=== PATIENT | female | born 1970 | race Caucasian/White ===

== ENCOUNTER → 2017-02-21 | Outpatient (CLI) | payer MEDICAID ==
[~2017-02-21] MED LIST: FERRIC CARBOXYMALTOSE 750 MG in NORMAL SALINE 250 ML IV PRN; NORMAL SALINE 250 ML IV PRN
[2017-02-21 10:34] VITALS: BP 124/60
== END ==
LOC: II 09:31
PROVIDERS: ATTEND Specialist
PROC: 3E033GC Introduction of Other Therapeutic Substance into Peripheral Vein, Percutaneous Approach (ICD-10-PCS; principal; 2017-02-21)
DX: D50.9 Iron deficiency anemia, unspecified (principal); K91.2 Postsurgical malabsorption, not elsewhere classified
CPT/HCPCS: 96365; J7050; J1439

== ENCOUNTER → 2017-02-21 | Outpatient (CLI) | payer MEDICAID | LOC: RAD 12:38 | PROVIDERS: ATTEND Specialist | DX: D73.89 Other diseases of spleen (principal); N83.202 Unspecified ovarian cyst, left side | CPT/HCPCS: 74174 ==

== ENCOUNTER 2017-03-01 09:36 | Outpatient (CLI) | payer MEDICAID ==
[2017-03-01 11:00] VITALS: BP 142/60
== END 2017-03-01 11:00 | disposition home or self-care (01) ==
LOC: II 09:36
PROVIDERS: ATTEND Specialist
PROC: 3E033GC Introduction of Other Therapeutic Substance into Peripheral Vein, Percutaneous Approach (ICD-10-PCS; principal; 2017-03-01)
DX: D50.9 Iron deficiency anemia, unspecified (principal); K91.2 Postsurgical malabsorption, not elsewhere classified
CPT/HCPCS: 96365; J7050; J1439

== ENCOUNTER 2017-06-13 17:29 | Emergency (ER) | payer MEDICAID, OTHER ==
--- NOTE | 2017-06-13 18:22 | ER Document Report ---
ED Medical Screen (RME) - General Chief Complaint: Headache Stated Complaint: HEAD PAIN Time Seen by Provider: 06/13/17 18:16 Mode of Arrival: Ambulatory Information source: Patient Notes: 47 yr old female hx of antiphospholipid presents whit complaints of headaches intermittently over the past month, worst over the past 2 hours Patient denies any neurological deficit, patient is on Eliquis I have greeted and performed a rapid initial assessment of this patient. A comprehensive ED assessment and evaluation of the patient, analysis of test results and completion of the medical decision making process will be conducted by additional ED providers. PHYSICAL EXAMINATION: GENERAL: Well-appearing, well-nourished and in no acute distress. Patient is wearing sunglasses HEAD: Atraumatic, normocephalic. EYES: Pupils equal round extraocular movements intact, conjunctiva are normal. ENT: Nares patent NECK: Normal range of motion LUNGS: No respiratory distress Musculoskeletal: Normal range of motion NEUROLOGICAL: Normal speech, normal gait. PSYCH: Normal mood, normal affect. SKIN: Warm, Dry, normal turgor, no rashes or lesions noted. TRAVEL OUTSIDE OF THE [place] IN LAST 30 DAYS: No - Related Data Allergies/Adverse Reactions: latex [Latex] Allergy (Verified 06/13/17 17:50) warfarin sodium [From Coumadin] Allergy (Verified 06/13/17 17:50) acetaminophen [From Tylenol] Adverse Reaction (Unknown, Verified 06/13/17 17:50) lisinopril Adverse Reaction (Verified 06/13/17 17:50) itching throat morphine Adverse Reaction (Verified 06/13/17 17:50) stomach cramps Home Medications: Current Home Medications Amlodipine Besylate 5 mg PO DAILY 06/13/17 [History] Apixaban [Eliquis 5 mg Tablet] 5 mg PO BID 06/13/17 [History] Cyclobenzaprine HCl [Flexeril 10 mg Tablet] 10 mg PO TIDP PRN 06/13/17 [History] Past Medical History - Social History Frequency of alcohol use: Social Drug Abuse: Marijuana Family history: Other - Past Medical History Cardiac Medical History: Reports: Hx Hypercholesterolemia, Hx Hypertension Denies: Hx Congestive Heart Failure, Hx Coronary Artery Disease, Hx Heart Attack, Hx Pulmonary Embolism Pulmonary Medical History: Denies: Hx Asthma, Hx Bronchitis, Hx COPD, Hx Pneumonia, Hx Tuberculosis Neurological Medical History: Denies: Hx Cerebrovascular Accident, Hx Seizures Endocrine Medical History: Denies: Hx Diabetes Mellitus Type 1, Hx Diabetes Mellitus Type 2, Hx Hyperthyroidism, Hx Hypothyroidism Renal/ Medical History: Denies: Hx Peritoneal Dialysis GI Medical History: Reports: Hx Gastroesophageal Reflux Disease, Hx Hiatal Hernia, Hx Ulcer. Denies: Hx Cirrhosis, Hx Hepatitis Musculoskeltal Medical History: Reports Hx Arthritis - bursitis, osteo in spine and rheumatoid Psychiatric Medical History: Denies: Hx Depression Infectious Medical History: Denies: Hx Hepatitis, Hx MRSA Past Surgical History: Reports: Hx Abdominal Surgery - Vertical Banding, Hx Section, Hx Cholecystectomy, Hx Gastric Bypass Surgery, Hx Tonsillectomy, Hx Tubal Ligation. Denies: Hx Hysterectomy - Immunizations Hx Diphtheria, Pertussis, Tetanus Vaccination: Yes Physical Exam - Vital signs Vitals: Temp Pulse BP Pulse Ox 98.5 F 88 133/88 H 93 06/13/17 17:48 06/13/17 17:48 06/13/17 17:48 06/13/17 17:48 Course - Vital Signs Vital signs: Temp Pulse Resp BP Pulse Ox 98.5 F 88 18 133/88 H 93 06/13/17 17:48 06/13/17 17:48 06/13/17 18:10 06/13/17 17:48 06/13/17 17:48
[2017-06-13 19:10] LABS: ABSOLUTE BASOPHILS # (AUTO) 0.1 10^3/uL (0.0-0.2); ABSOLUTE EOSINOPHILS # (AUTO) 0.5 10^3/uL (0.0-0.6); ABSOLUTE LYMPHOCYTES (AUTO) 3.2 10^3/uL (0.5-4.7); ABSOLUTE MONOCYTES (AUTO) 0.7 10^3/uL (0.1-1.4); ABSOLUTE NEUT (AUTO) 5.9 10^3/uL (1.7-8.2); EOSINOPHILS % (AUTO) 5.1 % (0-6); HEMATOCRIT 43.8 % (36.0-47.0); HEMOGLOBIN 15.5 g/dL (12.0-15.5); HGB HCT DIFFERENCE 2.7; LYMPHOCYTES % (AUTO) 30.6 % (13-45); MEAN CORPUSCULAR HEMOGLOBIN 33.9 pg (27.0-33.4); MEAN CORPUSCULAR HGB CONC 35.4 g/dL (32.0-36.0); MEAN CORPUSCULAR VOLUME 96 fl (80-97); MONOCYTES % (AUTO) 6.3 % (3-13); RED BLOOD COUNT 4.59 10^6/uL (3.72-5.28); RED CELL DISTRIBUTION WIDTH 13.3 % (11.5-14.0); WHITE BLOOD COUNT 10.4 10^3/uL (4.0-10.5)
[2017-06-13 19:25] LABS: ALANINE AMINOTRANSFERASE 28 U/L (9-52); ALBUMIN 4.4 g/dL (3.5-5.0); ALKALINE PHOSPHATASE 80 U/L (38-126); ANION GAP 11 (5-19); ASPARTATE AMINO TRANSFERASE 21 U/L (14-36); BILIRUBIN,DIRECT 0.4 mg/dL (0.0-0.4); BILIRUBIN,TOTAL 0.5 mg/dL (0.2-1.3); BLOOD UREA NITROGEN 8 mg/dL (7-20); CALCIUM 9.8 mg/dL (8.4-10.2); CARBON DIOXIDE 26 mmol/L (22-30); CHLORIDE 102 mmol/L (98-107); CREATININE RESULT 0.69 mg/dL (0.52-1.25); GLUCOSE 96 mg/dL (75-110); POTASSIUM 4.2 mmol/L (3.6-5.0); SODIUM 139.2 mmol/L (137-145); TOTAL PROTEIN 8.1 g/dL (6.3-8.2)
--- NOTE | 2017-06-13 19:43 | ER Document Report ---
ED Headache - General Chief Complaint: Headache Stated Complaint: HEAD PAIN Time Seen by Provider: 06/13/17 18:16 Mode of Arrival: Ambulatory Notes: Patient is a 47-year-old female who presents emergency department complaining of headache. Patient states that she has been having headaches on the top of her head described as " starburst" fleeting headache. Patient states that earlier this afternoon about 30 she had a headache that has not gone away and is now behind her right eye with associated blurry vision, light sensitivity. Patient states she does have a history of migraines. Patient states that she took her home dose of oxycodone with minimal improvement in her symptoms. 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 Denies any history of CVA or TIA. TRAVEL OUTSIDE OF THE [place] IN LAST 30 DAYS: No - Related Data Allergies/Adverse Reactions: latex [Latex] Allergy (Verified 06/13/17 17:50) warfarin sodium [From Coumadin] Allergy (Verified 06/13/17 17:50) acetaminophen [From Tylenol] Adverse Reaction (Unknown, Verified 06/13/17 17:50) lisinopril Adverse Reaction (Verified 06/13/17 17:50) itching throat morphine Adverse Reaction (Verified 06/13/17 17:50) stomach cramps Home Medications: Current Home Medications Amlodipine Besylate 5 mg PO DAILY 06/13/17 [History] Apixaban [Eliquis 5 mg Tablet] 5 mg PO BID 06/13/17 [History] Cyclobenzaprine HCl [Flexeril 10 mg Tablet] 10 mg PO TIDP PRN 06/13/17 [History] Past Medical History - General Information source: Patient - Social History Smoking Status: Current Every Day Smoker Frequency of alcohol use: Social Drug Abuse: Marijuana Family History: Reviewed & Not Pertinent, Other Patient has suicidal ideation: No Patient has homicidal ideation: No - Past Medical History Cardiac Medical History: Reports: Hx Hypercholesterolemia, Hx Hypertension Denies: Hx Congestive Heart Failure, Hx Coronary Artery Disease, Hx Heart Attack, Hx Pulmonary Embolism Pulmonary Medical History: Denies: Hx Asthma, Hx Bronchitis, Hx COPD, Hx Pneumonia, Hx Tuberculosis Neurological Medical History: Denies: Hx Cerebrovascular Accident, Hx Seizures Endocrine Medical History: Denies: Hx Diabetes Mellitus Type 1, Hx Diabetes Mellitus Type 2, Hx Hyperthyroidism, Hx Hypothyroidism Renal/ Medical History: Denies: Hx Peritoneal Dialysis GI Medical History: Reports: Hx Gastroesophageal Reflux Disease, Hx Hiatal Hernia, Hx Ulcer. Denies: Hx Cirrhosis, Hx Hepatitis Musculoskeltal Medical History: Reports Hx Arthritis - bursitis, osteo in spine and rheumatoid Psychiatric Medical History: Denies: Hx Depression Infectious Medical History: Denies: Hx Hepatitis, Hx MRSA Past Surgical History: Reports: Hx Abdominal Surgery - Vertical Banding, Hx Section, Hx Cholecystectomy, Hx Gastric Bypass Surgery, Hx Tonsillectomy, Hx Tubal Ligation. Denies: Hx Hysterectomy - Immunizations Hx Diphtheria, Pertussis, Tetanus Vaccination: Yes Review of Systems - Review of Systems Constitutional: No symptoms reported EENT: See HPI Cardiovascular: No symptoms reported Respiratory: No symptoms reported Neurological/Psychological: See HPI -: Yes All other systems reviewed and negative Physical Exam - Vital signs Vitals: Temp Pulse BP Pulse Ox 98.5 F 88 133/88 H 93 06/13/17 17:48 06/13/17 17:48 06/13/17 17:48 06/13/17 17:48 - Notes Notes: PHYSICAL EXAM GENERAL: Alert, interacts well. Is resting comfortably on the gurney. Continues to hold her right hand over her right eye due to sensitivity to light. HEAD: Normocephalic, atraumatic. EYES: Pupils equal, round, and reactive to light. Extraocular movements intact. ENT: Oral mucosa moist, tongue midline. NECK: Full range of motion. Supple. Trachea midline. LUNGS: Clear to auscultation bilaterally, no wheezes, rales, or rhonchi. No respiratory distress. HEART: Regular rate and rhythm. No murmurs, gallops, or rubs. ABDOMEN: Soft, nondistended, nontender. No guarding, rebound, or rigidity.. Bowel sounds present in all 4 quadrants. EXTREMITIES: Moves all 4 extremities spontaneously. No edema, radial and dorsalis pedis pulses 2/4 bilaterally. No cyanosis. Gait stable and able to ambulate without assistance. NEUROLOGICAL: Alert and oriented x4. Normal speech. GCS 15 PSYCH: Normal affect, normal mood. SKIN: Warm, dry, normal turgor. No rashes or lesions noted. Course - Re-evaluation Re-evalutation: 06/13/17 21:50 Patient with benign workup and CTA that does not show any evidence of infarction , obstruction. Patient has responded well to IV Toradol. Patient does not have any focal neurologic deficits, nuchal rigidity, vital signs are within normal limits no papilledema. Patient is otherwise no acute distress and hemodynamically stable. Low index for suspicion of acute subarachnoid hemorrhage, meningitis or mass. Low suspicion for acute life-threatening etiology with intact neuro exam therefore no additional imaging or laboratory testing is indicated. Will discharge patient home with strict follow-up with PCP for blood pressure check within the next week. - Vital Signs Vital signs: Temp Pulse Resp BP Pulse Ox 98.5 F 77 18 148/93 H 98 06/13/17 17:48 06/13/17 22:01 06/13/17 22:01 06/13/17 22:01 06/13/17 22:01 - Laboratory Result Diagrams: 06/13/17 18:55 06/13/17 18:55 Laboratory results interpreted by me: 06/13/17 18:55 MCH 33.9 H - Diagnostic Test Radiology reviewed: Image reviewed, Reports reviewed Discharge - Discharge Clinical Impression: Headache Qualifiers: Headache chronicity pattern: acute headache Condition: Good Disposition: HOME, SELF-CARE Additional Instructions: HEADACHE: The physician does not feel that the headache you are experiencing has a serious underlying cause. Most headaches are due to emotional stress, with resultant muscle tension (tension headache). Occasionally, headaches are secondary to changes in the blood vessels of the scalp (vascular headache and migraine headache). Sometimes, a headache is the first symptom of another developing illness, such as a viral infection. You have no evidence of stroke, bleeding, meningitis, or other serious cause of your headache. The treatment of headaches varies with the severity and cause of the pain. Not all headaches need pain shots. In fact, there is evidence that using narcotics for headaches may make them worse in the long run. The physician will determine the therapy that's in your best interest. If you develop a fever, if the headache is different from any you've previously experienced, or if the headache progressively worsens, then call your physician at once or go to the emergency room. REGLAN (METOCLOPRAMIDE): Reglan has been prescribed. This medicine affects the stomach and intestines. It can be used to treat nausea and vomiting, to prevent reflux of stomach acid up into the esophagus, or to increase the contractions of the stomach and intestines. It is often prescribed for esophagitis, and for paralysis of the stomach in diabetics. Reglan can cause either mild restlessness or drowsiness. You should contact the doctor at once if you become extremely restless, anxious, or cannot sleep, or if you develop uncontrollable motions of the lips, tongue, or jaw. Do not take alcohol with this medicine. Do not drive or operate machinery until you have been taking this medicine long enough to know how it affects you. Call the doctor if you develop abdominal pains, lightheadedness, black stool, or blood in the stool or vomitus. TORADOL INJECTION: You have been given an injection of ketorolac tromethamine (Toradol). This is an excellent, safe drug for pain control. It also has potent antiinflammatory action. You should have significant pain relief within about one hour. Toradol is not addicting and is non-sedating. It does not interfere with driving or work. Call or return if you develop itching, hives, shortness of breath, or rash. FOLLOW-UP CARE: If you have been referred to a physician for follow-up care, call the physician s office for an appointment as you were instructed or within the next two days. If you experience worsening or a significant change in your symptoms, notify the physician immediately or return to the Emergency Department at any time for re-evaluation. [facility] - Follow up as needed
--- NOTE | 2017-06-13 20:19 | RADIOLOGY REPORT (SQ) ---
EXAM DESCRIPTION: CTA HEAD COMPLETED DATE/TIME: 06/13/2017 8:08 pm REASON FOR STUDY: headahce, hx of aortic clots COMPARISON: February 2016 TECHNIQUE: Post IV contrast scanning, thin section axial imaging through the brain to evaluate the a rterial structures. Source and MIP images are saved and reviewed on PACS. Advanced 3D imaging as volume-rendering, MIPs, SSD performed? No All CT scanners at this facility use dose modulation, iterative reconstruction, and/or weight based d osing when appropriate to reduce radiation dose to as low as reasonably achievable (ALARA). [facility]: Dose Right [facility]: CareDose [facility]: Dose Right [facility]: Teradose 4D [facility]: Anam Mobile CONTRAST TYPE AND DOSE: contrast/concentration: Isovue 370.00 mg/ml; Total Contrast Delivered: 70.0 ml; Total Saline Delivered: 75.0 ml RENAL FUNCTION: Creatinine 0.69 LIMITATIONS: None. FINDINGS: [place]: The anterior, middle, posterior cerebral arteries are all patent. No ev idence of aneurysm or focal stenosis. POSTERIOR CIRCULATION: The distal vertebral arteries are patent as is the basilar artery. No aneurysm . BRAIN: No gross enhancing lesions as visualized. The superior cerebral hemispheres are not included in the field of view. BONES: Intact as visualized. SINUSES: No fluid or mucosal thickening. OTHER: No other significant finding. IMPRESSION: NO CTA EVIDENCE OF STENOSIS OR ANEURYSM OF THE [place]. TECHNICAL DOCUMENTATION: JOB ID: [id number] Quality ID # [id number]: Final reports with documentation of one or more dose reduction techniques (e.g., Au tomated exposure control, adjustment of the mA and/or kV according to patient size, use of iterative reconstruction technique) 2010 [employer]- All Rights Reserved
[2017-06-13] MEDS ORDERED: KETOROLAC TROMETHAMINE INJ/PF 30 MG/1 ML SDV IV ONE (20:53)
[2017-06-13] MEDS ORDERED: METOCLOPRAMIDE HCL INJ/PF 10 MG/2 ML SDV IV ONE (20:53)
[2017-06-13 22:06] VITALS: BP 148/93
== END 2017-06-13 22:01 | disposition home or self-care (01) ==
LOC: ER 17:29
DX: R51 Headache (principal); F17.200 Nicotine dependence, unspecified, uncomplicated; E78.00 Pure hypercholesterolemia, unspecified; I10 Essential (primary) hypertension; Z90.49 Acquired absence of other specified parts of digestive tract; Z91.040 Latex allergy status; Z88.6 Allergy status to analgesic agent; Z98.84 Bariatric surgery status
CPT/HCPCS: 99284; 96374; 96375; 36415; 85025; 80053; 70496; J1885; J2765

== ENCOUNTER → 2017-12-20 | Outpatient (CLI) | payer MEDICAID ==
--- NOTE | 2017-12-23 18:10 | XCELERA REPORT ---
[address] [address] Lower Extremity Arterial Evaluation Name: VELMA PALACIOS Age: 47 yrs Gender: Female : 1970 Patient Status: Outpatient Patient Location: Study Date: 12/20/2017 09:06 AM Procedure: A color flow and duplex scan of the lower extremity arteries was performed bilaterally with velocity and waveform anaylsis. Ankle brachial indicies performed. Reason For Study: PVD Ordering Physician: NISHANT COULTER Performed By: Keisha Husain Measurements and Calculations Right Left MAINFRAME APPLICATIONS DEVELOPER PSV 89.9 51.9 cm/sec Prox PFA PSV -89.3 -38.2 cm/sec Prox SFA PSV 84.9 77.7 cm/sec Mid SFA PSV -86.0 -60.4 cm/sec Dist SFA PSV -36.0 -57.6 cm/sec Prox Pop A PSV 51.3 35.2 cm/sec Dist ANDREA PSV 127.0 67.9 cm/sec Prox BANQUET LEAD PSV 50.8 cm/sec Dist BANQUET LEAD PSV 70.5 18.9 cm/sec Prox Dorys A PSV 63.5 cm/sec Dist Dorys A PSV 53.1 cm/sec Mikael Pedis PSV -106.9 44.0 cm/sec Right Side Arterial Evaluation Normal velocity and triphasic waveforms noted from the Common Femoral artery to the Posterior Tibial artery. Biphasic in the Anterior Tibial artery. 20-49 % stenosis at the Anterior Tibial artery. Ankle Brachial index 1.3. Left Side Arterial Evaluation Normal velocity and triphasic waveforms noted from the Common Femoral artery to the Anterior Tibial artery. Biphasic in the Posterior Tibial artery. 20-49 % stenosis at the Posterior Tibial artery. Ankle Brachial index 1.4. Interpretation Summary Mild hemodynamically significant lesions in the bilateral lower extremities, on duplex imaging, at rest. : NISHANT COULTER > Nishant Coulter
== END ==
LOC: SP 08:53
PROVIDERS: ATTEND Surgery
DX: I73.9 Peripheral vascular disease, unspecified (principal)
CPT/HCPCS: 93925

== ENCOUNTER 2018-06-04 14:41 | Emergency (ER) | payer MEDICAID ==
[2018-06-04 15:13] VITALS: BP 151/91
--- NOTE | 2018-06-04 15:44 | ER Document Report ---
ED Medical Screen (RME) - General Chief Complaint: Breast Problem Stated Complaint: POSSIBLE ABSCESS Time Seen by Provider: 06/04/18 15:41 Notes: 48 years old female with a history of right breast abscess presents today with another swelling and tenderness over the right breast. No fever chills or other constitutional symptoms TRAVEL OUTSIDE OF THE [place] IN LAST 30 DAYS: No - Related Data Allergies/Adverse Reactions: latex [Latex] Allergy (Verified 06/04/18 14:43) warfarin sodium [From Coumadin] Allergy (Verified 06/04/18 14:43) acetaminophen [From Tylenol] Adverse Reaction (Unknown, Verified 06/04/18 14:43) lisinopril Adverse Reaction (Verified 06/04/18 14:43) itching throat morphine Adverse Reaction (Verified 06/04/18 14:43) stomach cramps Past Medical History - Social History Chew tobacco use (# tins/day): No Frequency of alcohol use: Social Drug Abuse: None Family history: Other - Past Medical History Cardiac Medical History: Reports: Hx Hypercholesterolemia, Hx Hypertension Denies: Hx Congestive Heart Failure, Hx Coronary Artery Disease, Hx Heart Attack, Hx Pulmonary Embolism Pulmonary Medical History: Denies: Hx Asthma, Hx Bronchitis, Hx COPD, Hx Pneumonia, Hx Tuberculosis Neurological Medical History: Denies: Hx Cerebrovascular Accident, Hx Seizures Endocrine Medical History: Denies: Hx Diabetes Mellitus Type 1, Hx Diabetes Mellitus Type 2, Hx Hyperthyroidism, Hx Hypothyroidism Renal/ Medical History: Denies: Hx Peritoneal Dialysis GI Medical History: Reports: Hx Gastroesophageal Reflux Disease, Hx Hiatal Hernia, Hx Ulcer. Denies: Hx Cirrhosis, Hx Hepatitis Musculoskeltal Medical History: Reports Hx Arthritis - bursitis, osteo in spine and rheumatoid Psychiatric Medical History: Denies: Hx Depression Infectious Medical History: Denies: Hx Hepatitis, Hx MRSA Past Surgical History: Reports: Hx Abdominal Surgery - Vertical Banding, Hx Section, Hx Cholecystectomy, Hx Gastric Bypass Surgery, Hx Orthopedic Surgery - ablation of lower lumbar spine, Hx Tonsillectomy, Hx Tubal Ligation. Denies: Hx Hysterectomy - Immunizations Hx Diphtheria, Pertussis, Tetanus Vaccination: Yes Physical Exam - Vital signs Vitals: Temp Pulse Resp BP Pulse Ox 98.6 F 91 18 151/91 H 98 06/04/18 15:11 06/04/18 15:11 06/04/18 15:11 06/04/18 15:11 06/04/18 15:11 Course - Vital Signs Vital signs: Temp Pulse Resp BP Pulse Ox 98.6 F 91 18 151/91 H 98 06/04/18 15:11 06/04/18 15:11 06/04/18 15:11 06/04/18 15:11 06/04/18 15:11 Doctor's Discharge - Discharge Referrals: NISHANT COULTER MD [Primary Care Provider] - Follow up as needed
[2018-06-04 16:45] LABS: ABSOLUTE BASOPHILS # (AUTO) 0.1 10^3/uL (0.0-0.2); ABSOLUTE EOSINOPHILS # (AUTO) 0.7 10^3/uL (0.0-0.6); ABSOLUTE LYMPHOCYTES (AUTO) 3.6 10^3/uL (0.5-4.7); ABSOLUTE MONOCYTES (AUTO) 0.7 10^3/uL (0.1-1.4); ABSOLUTE NEUT (AUTO) 5.3 10^3/uL (1.7-8.2); EOSINOPHILS % (AUTO) 6.4 % (0-6); HEMATOCRIT 39.9 % (36.0-47.0); HEMOGLOBIN 13.9 g/dL (12.0-15.5); LYMPHOCYTES % (AUTO) 34.7 % (13-45); MEAN CORPUSCULAR HEMOGLOBIN 33.3 pg (27.0-33.4); MEAN CORPUSCULAR VOLUME 95 fl (80-97); MONOCYTES % (AUTO) 6.9 % (3-13); PLATELET COUNT 359 10^3/uL (150-450); RED BLOOD COUNT 4.19 10^6/uL (3.72-5.28); RED CELL DISTRIBUTION WIDTH 13.2 % (11.5-14.0); TOTAL CELLS COUNTED % (AUTO) 100 %; WHITE BLOOD COUNT 10.4 10^3/uL (4.0-10.5)
--- NOTE | 2018-06-04 21:42 | RADIOLOGY REPORT (SQ) ---
EXAM DESCRIPTION: U/S BREAST UNILATERAL LIMITED COMPLETED DATE/TIME: 06/04/2018 5:40 pm REASON FOR STUDY: Right breast abscess COMPARISON: None TECHNIQUE: Static and Realtime grayscale interrogation of focal area(s) of concern in the right pola st(s) acquired. Selected color doppler/spectral images saved to PACS. LIMITATIONS: None. FINDINGS: Masses:There is an irregular hypoechoic area measuring 2.3 x 1.9 x 1.2 cm in the retroareo lar right breast. Architecture:No alteration of normal morphology. No skin thickening. No edema. Other: None. IMPRESSION: Irregular hypoechoic area in the retroareolar right breast. Possible recurrent breast abscess. Recommend mammogram. BIRAD: 1 Negative. RECOMMENDATION: RECOMMENDED FOLLOW-UP: Follow-up as clinically indicated. COMMENT: The [employer] ([employer]) has developed recommendations for screening MRI of the breasts in certain patient populations, to be used in conjunction with mammography. Breast MRI s urveillance may be appropriate for women with more than 20% lifetime risk of developing breast cancer as determined by genetic testing, significant family history of the disease, or history of mantle r adiation for Hodgkins Disease. ACR Practice Guidelines 2008. TECHNICAL DOCUMENTATION: FINDING NUMBER: (1) ASSESSMENT: (1) JOB ID: [id number] [employer]- All Rights Reserved Reading location - IP/workstation name: [email or web address]
[2018-06-04] MEDS ORDERED: SULFAMETHOXAZOLE/TRIMETHOPRIM 800-160 MG TABLET PO ONE (22:20)
[2018-06-04] MEDS ORDERED: CEPHALEXIN 500 MG CAPSULE PO ONE (22:21)
--- NOTE | 2018-06-04 22:27 | ER Document Report ---
ED Breast Problem - General Chief Complaint: Breast Problem Stated Complaint: POSSIBLE ABSCESS Time Seen by Provider: 06/04/18 15:41 Mode of Arrival: Ambulatory Information source: Patient TRAVEL OUTSIDE OF THE [place] IN LAST 30 DAYS: No - HPI Patient complains to provider of: Other - 40-year-old woman who presents for evaluation of pain and swelling in her right breast which is reminiscent of previous abscesses which she has had. She notes that she has had an abscess in the past which required operative drainage because it had extended down to the level of the chest wall, states that this was not quite that bad have been spontaneously draining up until yesterday which time it blocked off swelled and caused increased pain in the breast. She denies any fevers or chills, denies any active drainage at this time, she does endorse pain to the right breast and swelling in the size of approximately 1 rigoberto of an abscess. Nothing is made it any better, touching it makes it worse. - Related Data Allergies/Adverse Reactions: latex [Latex] Allergy (Verified 06/04/18 14:43) warfarin sodium [From Coumadin] Allergy (Verified 06/04/18 14:43) acetaminophen [From Tylenol] Adverse Reaction (Unknown, Verified 06/04/18 14:43) lisinopril Adverse Reaction (Verified 06/04/18 14:43) itching throat morphine Adverse Reaction (Verified 06/04/18 14:43) stomach cramps Past Medical History - General Information source: Patient - Social History Smoking Status: Current Every Day Smoker Chew tobacco use (# tins/day): No Frequency of alcohol use: Social Drug Abuse: None Family History: Reviewed & Not Pertinent, Other Patient has suicidal ideation: No Patient has homicidal ideation: No - Past Medical History Cardiac Medical History: Reports: Hx Hypercholesterolemia, Hx Hypertension Denies: Hx Congestive Heart Failure, Hx Coronary Artery Disease, Hx Heart Attack, Hx Pulmonary Embolism Pulmonary Medical History: Denies: Hx Asthma, Hx Bronchitis, Hx COPD, Hx Pneumonia, Hx Tuberculosis Neurological Medical History: Denies: Hx Cerebrovascular Accident, Hx Seizures Endocrine Medical History: Denies: Hx Diabetes Mellitus Type 1, Hx Diabetes Mellitus Type 2, Hx Hyperthyroidism, Hx Hypothyroidism Renal/ Medical History: Denies: Hx Peritoneal Dialysis GI Medical History: Reports: Hx Gastroesophageal Reflux Disease, Hx Hiatal Hernia, Hx Ulcer. 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 Denies: Hx Hysterectomy - Immunizations Hx Diphtheria, Pertussis, Tetanus Vaccination: Yes Review of Systems - Review of Systems -: Yes All other systems reviewed and negative Physical Exam - Vital signs Vitals: Temp Pulse Resp BP Pulse Ox 98.6 F 91 18 151/91 H 98 06/04/18 15:11 06/04/18 15:11 06/04/18 15:11 06/04/18 15:11 06/04/18 15:11 - General General appearance: Appears well In distress: None - HEENT Head: Normocephalic Eyes: Normal Conjunctiva: Normal - Respiratory Respiratory status: No respiratory distress Breath sounds: Normal Chest palpation: Other Notes: 5 x 5 cm terse swollen area deep to the areola on the right breast - Cardiovascular Rhythm: Regular Heart sounds: Normal auscultation - Abdominal Inspection: Normal Distension: No distension - Back Back: Normal - Extremities General upper extremity: Normal inspection General lower extremity: Normal inspection - Neurological Neuro grossly intact: Yes Course - Re-evaluation Re-evalutation: 06/04/18 23:01 40-year-old female presents for swelling in the right breast. Had an ultrasound prior to evaluation. Also had laboratory evaluation. 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 Her ultrasound does demonstrate what appears to be a fluid collection consistent with a probable abscess it was recommended to potentially pursue a mammogram though clinically at this time she has an abscess. Spoke to Dr. larson the on-call general surgeon, he is in agreement at this time to evaluate the patient in his clinic for possible needle aspiration or drainage. Because she has had abscesses in the past will plan for antibiotic coverage. Was given return precautions and encouraged to follow-up with Dr. larson tomorrow in his clinic in the morning. Both were in agreement with this plan. - Vital Signs Vital signs: Temp Pulse Resp BP Pulse Ox 98.6 F 91 18 151/91 H 98 06/04/18 15:11 06/04/18 15:11 06/04/18 15:11 06/04/18 15:11 06/04/18 15:11 - Laboratory Result Diagrams: 06/04/18 16:07 Laboratory results interpreted by me: 06/04/18 16:07 Eosinophils % 6.4 H Absolute Eosinophils 0.7 H Discharge - Discharge Clinical Impression: Abscess of right breast Condition: Good Disposition: HOME, SELF-CARE Instructions: Abscess ([facility]) Additional Instructions: You were seen today in the emergency department for her breast abscess, he had an evaluation including a physical exam as well as blood tests and an ultrasound. Present tomorrow to [facility] for Dr. Madrid, he will evaluate you for potential drainage of a breast abscess. Return for worsening fevers chills inability to eat or drink or worsening pain. Prescriptions: Cephalexin Monohydrate [Keflex 500 mg Capsule] 500 mg PO Q6H 5 Days #30 capsule Referrals: NISHANT COULTER MD [ACTIVE STAFF] - Follow up as needed JOVANNY MADRID MD [ACTIVE STAFF] - Follow up as needed
== END 2018-06-04 22:35 | disposition home or self-care (01) ==
LOC: ER 14:41
DX: N61.1 Abscess of the breast and nipple (principal); N64.4 Mastodynia; E78.00 Pure hypercholesterolemia, unspecified; I10 Essential (primary) hypertension; Z91.040 Latex allergy status; Z88.6 Allergy status to analgesic agent; Z90.49 Acquired absence of other specified parts of digestive tract; Z98.84 Bariatric surgery status; Z98.51 Tubal ligation status
CPT/HCPCS: 36415; 76642; 85025; 99284

== ENCOUNTER 2018-07-01 19:01 | Emergency (ER) | payer MEDICAID ==
--- NOTE | 2018-07-01 19:30 | ER Document Report ---
HPI - HPI Patient complains to provider of: Breast abscess Onset: Other - 1 month Onset/Duration: Worse Quality of pain: Sharp Pain Level: 5 Context: Patient presents with a right breast abscess that she states has been there for over a month. Patient was here last month and treated with antibiotics. Patient states that the swelling initially went down but then started to return over the past several days. Patient states pain became more severe today which prompted her visit. Patient is set up for scheduled surgery on 07/05/[address] Madrid. Patient states that she finished Keflex 1 week ago. Patient has had a previous abscess involving this breast in the past which required incision and drainage procedure. Associated Symptoms: Other - Right breast tenderness. denies: Fever Exacerbated by: Movement Relieved by: Denies Similar symptoms previously: Yes Recently seen / treated by doctor: Yes - ROS ROS below otherwise negative: Yes Systems Reviewed and Negative: Yes All other systems reviewed and negative - CONSTITUTIONAL Constitutional: DENIES: Fever - CARDIOVASCULAR Cardiovascular: REPORTS: Chest pain - Right breast - GASTROINTESTINAL Gastrointestinal: DENIES: Nausea, Patient vomiting - REPRODUCTIVE Reproductive: DENIES: : - DERM Notes: Redness, abscess to right breast Past Medical History - General Information source: Patient - Social History Smoking Status: Current Every Day Smoker Smoking Education Provided: Yes Frequency of alcohol use: None Drug Abuse: None Occupation: None Lives with: Family Family History: Reviewed & Not Pertinent, Other - Medical History Medical History: Other - APS, lupus - Past Medical History Cardiac Medical History: Reports: Hx Hypercholesterolemia, Hx Hypertension Denies: Hx Congestive Heart Failure, Hx Coronary Artery Disease, Hx Heart Attack, Hx Pulmonary Embolism Pulmonary Medical History: Denies: Hx Asthma, Hx Bronchitis, Hx COPD, Hx Pneumonia, Hx Tuberculosis Neurological Medical History: Denies: Hx Cerebrovascular Accident, Hx Seizures Endocrine Medical History: Denies: Hx Diabetes Mellitus Type 1, Hx Diabetes Mellitus Type 2, Hx Hyperthyroidism, Hx Hypothyroidism Renal/ Medical History: Denies: Hx Peritoneal Dialysis GI Medical History: Reports: Hx Gastroesophageal Reflux Disease, Hx Hiatal Hernia, Hx Ulcer. 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 Denies: Hx Hysterectomy - Immunizations Hx Diphtheria, Pertussis, Tetanus Vaccination: Yes Vertical Provider Document - CONSTITUTIONAL Agree With Documented VS: Yes Exam Limitations: No Limitations General Appearance: WD/WN, No Apparent Distress - INFECTION CONTROL TRAVEL OUTSIDE OF THE [place] IN LAST 30 DAYS: No - HEENT HEENT: Atraumatic, Normocephalic - NECK Neck: Normal Inspection, Supple - RESPIRATORY Respiratory: Breath Sounds Normal, No Respiratory Distress - BACK Back: Normal Inspection - MUSCULOSKELETAL/EXTREMETIES Musculoskeletal/Extremeties: MAEW - NEURO Level of Consciousness: Awake, Alert, Appropriate Motor/Sensory: No Motor Deficit - DERM Integumentary: Warm, Dry, Abscess - Mild erythema extending to 9 o'clock position of right breast. Patient with tender induration below the right areola concerning for abscess Course - Re-evaluation Re-evalutation: 07/01/18 19:[address] Barragan regarding patient presentation. Dr. Barragan will be by to evaluate patient. 07/01/18 20:20 Dr. Barragan to bedside for examination. Recommends giving patient pain medication and IV fluids and he will reevaluate her status. 07/01/18 21:30 Dr. Barragan called stating that he reviewed patient's labs and request her to be discharged home to follow-up as planned with Dr. Madrid for surgery. Advises covering with antibiotics and instructed patient to cleanse with Hibiclens to the area. Does not feel that patient needs surgery tonight or admission for IV antibiotics at this time. - Vital Signs Vital signs: Temp Pulse Resp BP Pulse Ox 98.1 F 101 H 21 H 123/65 98 07/01/18 19:06 07/01/18 19:06 07/01/18 19:06 07/01/18 19:06 07/01/18 19:06 - Laboratory Result Diagrams: 07/01/18 20:09 07/01/18 20:09 Laboratory results interpreted by me: 07/01/18 22:27 Labs- Entire Visit 07/01/18 07/01/18 07/01/18 20:09 20:09 20:09 WBC 9.7 RBC 4.14 Hgb 13.4 Hct 38.5 MCV 93 MCH 32.4 MCHC 34.8 RDW 13.1 Plt Count 370 Seg Neutrophils % 50.0 Lymphocytes % 36.1 Monocytes % 6.3 Eosinophils % 6.4 H Basophils % 1.2 Absolute Neutrophils 4.9 Absolute Lymphocytes 3.5 Absolute Monocytes 0.6 Absolute Eosinophils 0.6 Absolute Basophils 0.1 PT 13.3 INR 0.96 APTT 33.8 Sodium 141.6 Potassium 3.8 Chloride 105 Carbon Dioxide 28 Anion Gap 9 BUN 9 Creatinine 0.72 Est GFR ( Amer) > 60 Est GFR (Non-Af Amer) > 60 Glucose 111 H Calcium 9.2 Discharge - Discharge Clinical Impression: Smoker, Breast abscess Condition: Stable Disposition: HOME, SELF-CARE Instructions: Abscess ([facility]), Clindamycin ([facility]) Additional Instructions: Return immediately for any new or worsening symptoms Followup with Dr. Madrid as planned, call his office on Monday to update them regarding your visit here today. Cleanse the area with Hibiclens soap daily. Stop smoking Take your pain medication that you have at home as prescribed. Prescriptions: Clindamycin HCl [Cleocin Hcl] 300 mg PO QID #28 capsule Forms: Smoking Cessation Education Referrals: SIMONE MISTRY MD [Primary Care Provider] - Follow up as needed JOVANNY MADRID MD [ACTIVE STAFF] - 07/03/18
[2018-07-01] MEDS ORDERED: CLINDAMYCIN 600 MG/D5W RTU 600 MG/50 ML RTUPB IV ONE (19:41)
[2018-07-01] MEDS ORDERED: NORMAL SALINE 1000 ML 1,000 ML IV ONE (20:16)
[2018-07-01] MEDS ORDERED: HYDROMORPHONE HCL INJ/PF 2 MG/ML AMPULE IV ONE (20:20)
[2018-07-01 20:26] LABS: ABSOLUTE BASOPHILS # (AUTO) 0.1 10^3/uL (0.0-0.2); ABSOLUTE EOSINOPHILS # (AUTO) 0.6 10^3/uL (0.0-0.6); ABSOLUTE LYMPHOCYTES (AUTO) 3.5 10^3/uL (0.5-4.7); ABSOLUTE MONOCYTES (AUTO) 0.6 10^3/uL (0.1-1.4); ABSOLUTE NEUT (AUTO) 4.9 10^3/uL (1.7-8.2); BASOPHILS % (AUTO) 1.2 % (0-2); EOSINOPHILS % (AUTO) 6.4 % (0-6); HEMATOCRIT 38.5 % (36.0-47.0); HEMOGLOBIN 13.4 g/dL (12.0-15.5); LYMPHOCYTES % (AUTO) 36.1 % (13-45); MEAN CORPUSCULAR HEMOGLOBIN 32.4 pg (27.0-33.4); MEAN CORPUSCULAR HGB CONC 34.8 g/dL (32.0-36.0); MEAN CORPUSCULAR VOLUME 93 fl (80-97); MONOCYTES % (AUTO) 6.3 % (3-13); PLATELET COUNT 370 10^3/uL (150-450); RED BLOOD COUNT 4.14 10^6/uL (3.72-5.28); RED CELL DISTRIBUTION WIDTH 13.1 % (11.5-14.0); TOTAL CELLS COUNTED % (AUTO) 100 %; WHITE BLOOD COUNT 9.7 10^3/uL (4.0-10.5)
[2018-07-01 20:29] LABS: INTERNATIONAL RATION (INR) 0.96; PROTHROMBIN TIME 13.3 SEC (11.4-15.4)
[2018-07-01 20:30] LABS: PARTIAL THROMBOPLASTIN TIME 33.8 SEC (23.5-35.8)
[2018-07-01 20:43] LABS: ANION GAP 9 (5-19); BLOOD UREA NITROGEN 9 mg/dL (7-20); CALCIUM 9.2 mg/dL (8.4-10.2); CARBON DIOXIDE 28 mmol/L (22-30); CHLORIDE 105 mmol/L (98-107); GLUCOSE 111 mg/dL (75-110); POTASSIUM 3.8 mmol/L (3.6-5.0); SODIUM 141.6 mmol/L (137-145)
--- NOTE | 2018-07-01 21:45 | PDOC CONSULTATION ---
Consultation Consult Date: 07/01/18 Attending physician:: CRISTINE SORTO Consult reason:: Right breast infection History of Present Illness Admission Date/PCP: SIMONE MISTRY MD Patient complains of: Right breast pain History of Present Illness: VELMA PALACIOS is a 48 year old female With a long complex history of multiple chronic medical problems including obesity, hypertension, DVT, on anticoagulation, chronic pain dependency lupus multiple allergies smoking with a known history of mammary duct associated inflammatory disease of the right nipple. She is one-year status post incision and drainage and packing of abscess right breast periareolar region 6 o'clock position. Approximately month ago she was seen planing of right breast pain she was evaluated, found to have a right breast abscess and arrangements were made for her to follow-up with Dr. Madrid, [facility]. Patient was seen by Dr. Madrid and arrangements were made for her to be taken to the operating room management on July 05. Patient has been on p.o. Keflex. She denies fever. She is having more pain in his now brought by rescue ground to also [facility] emergency department where she is found to have right breast tenderness. Surgery was consulted. Of note patient continues to smoke every day. Past Medical History Cardiac Medical History: Reports: Hyperlipidema, Hypertension Denies: Congestive Heart Failure, Coronary Artery Disease, Myocardial Infarction, Pulmonary Embolism Pulmonary Medical History: Denies: Asthma, Bronchitis, Chronic Obstructive Pulmonary Disease (COPD), Pneumonia, Tuberculosis Neurological Medical History: Denies: Seizures Endocrine Medical History: Denies: Diabetes Mellitus Type 1, Diabetes Mellitus Type 2, Hyperthyroidism, Hypothyroidism GI Medical History: Reports: Gastroesophageal Reflux Disease, Hiatal Hernia Denies: Cirrhosis, Hepatitis Musculoskeltal Medical History: Reports: Arthritis - bursitis, osteo in spine and rheumatoid Psychiatric Medical History: Denies: Depression Hematology: Reports: Anemia Infectious Medical History: Denies: Methicillin-Resistant Staph Aureus Past Surgical History Past Surgical History: Reports: Section, Cholecystectomy, Gastric Bypass Surgery, Orthopedic Surgery - ablation of lower lumbar spine, Tonsillectomy, Tubal Ligation Denies: Hysterectomy Social History Smoking Status: Current Every Day Smoker Frequency of Alcohol Use: Social Hx Recreational Drug Use: No Drugs: Marijuana Hx Prescription Drug Abuse: No Family History Family History: Reviewed & Not Pertinent, Other Parental Family History Reviewed: Yes Children Family History Reviewed: Yes Sibling(s) Family History Reviewed.: Yes Medication/Allergy Home Medications: Oxycodone HCl [Oxycodone HCl 10 MG Tablet] 10 mg PO TIDP PRN 07/21/16 Amlodipine Besylate 5 mg PO DAILY 06/13/17 Apixaban [Eliquis 5 mg Tablet] 5 mg PO BID 06/13/17 Cyclobenzaprine HCl [Flexeril 10 mg Tablet] 10 mg PO TIDP PRN 06/13/17 Compound Rub TOP BID 06/26/18 Pregabalin [Lyrica] 20 mg PO TID 06/26/18 Ranitidine HCl [Zantac 75 mg Tablet] 75 mg PO BID 06/26/18 Allergies/Adverse Reactions: latex [Latex] Allergy (Verified 06/04/18 14:43) warfarin sodium [From Coumadin] Allergy (Verified 06/04/18 14:43) acetaminophen [From Tylenol] Adverse Reaction (Unknown, Verified 06/04/18 14:43) lisinopril Adverse Reaction (Verified 06/04/18 14:43) itching throat morphine Adverse Reaction (Verified 06/04/18 14:43) stomach cramps Review of Systems Constitutional: PRESENT: as per HPI Eyes: ABSENT: visual disturbances Ears: ABSENT: hearing changes Cardiovascular: PRESENT: as per HPI Respiratory: PRESENT: other - Chronic wheeze Gastrointestinal: ABSENT: abdominal pain, constipation, diarrhea, hematemesis, hematochezia, nausea, vomiting Physical Exam Vital Signs: Temp Pulse Resp BP Pulse Ox 98.1 F 101 H 21 H 123/65 98 07/01/18 19:06 07/01/18 19:06 07/01/18 19:06 07/01/18 19:06 07/01/18 19:06 Intake & Output 06/30/18 07/01/18 07/02/18 06:59 06:59 06:59 Intake Total 50 Balance 50 Weight 121 kg General appearance: PRESENT: no acute distress Head exam: PRESENT: normocephalic Mouth exam: PRESENT: dry mucosa Neck exam: PRESENT: full ROM Respiratory exam: PRESENT: rales Cardiovascular exam: PRESENT: RRR Pulses: PRESENT: normal carotid pulses, normal radial pulses Rectal exam: PRESENT: deferred Neurological exam: PRESENT: alert, awake, oriented to person, oriented to time, oriented to situation Psychiatric exam: PRESENT: appropriate affect Skin exam: PRESENT: other - Right breast examined. There is slight eversion of the nipple. There is mild erythema. There is some induration and a firmness underlying the areole complex centrally; scar 630 position areolar border right breast. There is no jocy cellulitis. Results Laboratory Results: 07/01/18 20:09 07/01/18 20:09 07/01/18 07/01/18 20:09 20:09 WBC 9.7 RBC 4.14 Hgb 13.4 Hct 38.5 MCV 93 MCH 32.4 MCHC 34.8 RDW 13.1 Plt Count 370 Seg Neutrophils % 50.0 Lymphocytes % 36.1 Monocytes % 6.3 Eosinophils % 6.4 H Basophils % 1.2 Absolute Neutrophils 4.9 Absolute Lymphocytes 3.5 Absolute Monocytes 0.6 Absolute Eosinophils 0.6 Absolute Basophils 0.1 Sodium 141.6 Potassium 3.8 Chloride 105 Carbon Dioxide 28 Anion Gap 9 BUN 9 Creatinine 0.72 Est GFR ( Amer) > 60 Est GFR (Non-Af Amer) > 60 Glucose 111 H Calcium 9.2 Assessment & Plan - Diagnosis (1) Breast abscess Is this a current diagnosis for this admission?: Yes Plan: Impression: Chronic, 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 No evidence of sepsis, cellulitis, or need for immediate drainage Recommendations: 1. Warm compresses, Hibiclens scrubs, keep appointment for schedule surgery July [address] Madrid. 2. May consider switching from Keflex to Bactrim. 3. Stop smoking; I told her she will never heal this problem if she continues to smoke (2) Smoker Is this a current diagnosis for this admission?: Yes (3) Obese Is this a current diagnosis for this admission?: Yes (4) Anticoagulated Is this a current diagnosis for this admission?: Yes (5) Chronic pain Qualifiers: Is this a current diagnosis for this admission?: Yes (6) HTN (hypertension) Qualifiers: Is this a current diagnosis for this admission?: Yes - Time Time Spent: 30 to 50 Minutes Smoking Cessation Education: 3 to 10 minutes Medications reviewed and adjusted accordingly: Yes Anticipated discharge: Home
[2018-07-01 22:51] VITALS: BP 119/80
== END 2018-07-01 22:52 | disposition home or self-care (01) ==
LOC: ER 19:01
DX: N61.1 Abscess of the breast and nipple (principal); F17.200 Nicotine dependence, unspecified, uncomplicated; K21.9 Gastro-esophageal reflux disease without esophagitis; I10 Essential (primary) hypertension; I82.409 Acute embolism and thrombosis of unspecified deep veins of unspecified lower extremity; Z79.01 Long term (current) use of anticoagulants; Z79.899 Other long term (current) drug therapy
CPT/HCPCS: 99284; 96361; 96375; 96365; 36415; 85025; 85610; 85730; 80048; S0077; J1170; J7030

== ENCOUNTER 2018-07-05 08:58 | Day surgery (SDC) | payer MEDICAID ==
[2018-06-29 08:28] LABS: HEMATOCRIT 39.7 % (36.0-47.0); HEMOGLOBIN 13.7 g/dL (12.0-15.5); MEAN CORPUSCULAR HEMOGLOBIN 32.1 pg (27.0-33.4); MEAN CORPUSCULAR HGB CONC 34.4 g/dL (32.0-36.0); MEAN CORPUSCULAR VOLUME 93 fl (80-97); PLATELET COUNT 384 10^3/uL (150-450); RED BLOOD COUNT 4.25 10^6/uL (3.72-5.28); RED CELL DISTRIBUTION WIDTH 13.2 % (11.5-14.0); WHITE BLOOD COUNT 10.9 10^3/uL (4.0-10.5)
[2018-06-29 09:03] LABS: ANION GAP 13 (5-19); BLOOD UREA NITROGEN 13 mg/dL (7-20); CALCIUM 9.5 mg/dL (8.4-10.2); CARBON DIOXIDE 27 mmol/L (22-30); CHLORIDE 105 mmol/L (98-107); GLUCOSE 66 mg/dL (75-110); POTASSIUM 3.7 mmol/L (3.6-5.0); SODIUM 144.8 mmol/L (137-145)
--- NOTE | 2018-06-29 13:03 | EKG REPORT ---
SEVERITY:- ABNORMAL ECG - SINUS RHYTHM LEFT ANTERIOR FASCICULAR BLOCK : Confirmed by: Justin Salcedo MD 29-Jun-2018 13:02:33
[~2018-07-05 08:58] MED LIST changes: +CEFAZOLIN 2 GM/D5W RTU 2 GM/50 ML RTUPB IV PRN; -FERRIC CARBOXYMALTOSE 750 MG in NORMAL SALINE 250 ML IV PRN; +LACTATED RINGERS 1000 ML IV PRN; +LIDOCAINE 0.5% INJ-PF (5 MG/ML) 50 ML SDV SUBCUT PRN; -NORMAL SALINE 250 ML IV PRN
[2018-07-05] MEDS ORDERED: MIDAZOLAM 2 MG/2 ML INJ ONE (09:59)
[2018-07-05] MEDS ORDERED: PROPOFOL INJ 200 MG/20 ML VIAL IV ONE (09:59)
[2018-07-05] MEDS ORDERED: FENTANYL CITRATE INJ/PF 100 MCG/2 ML AMPUL ONE ×2 (09:59→13:12)
[2018-07-05] MEDS ORDERED: DEXAMETHASONE SOD PHOSPHATE INJ 4 MG/1 ML VIAL ONE (10:22)
[2018-07-05] MEDS ORDERED: ONDANSETRON HCL INJ/PF 4 MG/2 ML SDV ONE (10:22)
[2018-07-05] MEDS ORDERED: SUCCINYLCHOLINE CHLORIDE INJ 200 MG/10 ML VIAL ONE (10:23)
[2018-07-05] MEDS ORDERED: CEFAZOLIN 2 GM/D5W RTU 2 GM/50 ML RTUPB IV ONE (10:33)
[2018-07-05] MEDS ORDERED: BUPIVACAINE HCL 0.5 % INJ/PF 30 ML SDV ONE (11:46)
[2018-07-05] MEDS ORDERED: PROMETHAZINE HCL INJ 25 MG/1 ML VIAL IV PRN ×2 (12:32)
[2018-07-05] MEDS ORDERED: FENTANYL CITRATE INJ/PF 100 MCG/2 ML AMPUL IV PRN ×3 (12:32)
[2018-07-05] MEDS ORDERED: MEPERIDINE HCL/PF INJ 25 MG/1 ML DISP.SYRIN IV PRN (12:32)
[2018-07-05] MEDS ORDERED: DIPHENHYDRAMINE HCL 50 MG/ML VIAL IV PRN (12:32)
[2018-07-05] MEDS ORDERED: KETOROLAC TROMETHAMINE INJ/PF 30 MG/1 ML SDV ONE (13:19)
--- NOTE | 2018-07-05 13:24 | Discharge Summary ---
Discharge Summary (SDC) - Discharge Final Diagnosis: Right breast abscess with chronic, draining areolar fistula Date of Surgery: 07/05/18 Discharge Date: 07/05/18 Condition: Stable Referrals: SIMONE MISTRY MD [Primary Care Provider] - Discharge Diet: As Tolerated Respiratory Treatments at Home: Deep Breathing/Coughing, Incentive Spirometer Discharge Activity: Balance Activity w/Rest Home Care Assistance: None Needed Report the Following to Your Physician Immediately: Shortness of Breath, Nausea , Vomiting, Increase in Pain, Fever over 101 Degrees, Unusual Bleeding, Redness , Swelling, Warmth
--- NOTE | 2018-07-05 13:39 | Operative Report ---
Nonrecallable Operative Report DATE OF SURGERY: 07/05/18 PREOPERATIVE DIAGNOSIS: Right breast abscess with chronic, draining areolar fistula POSTOPERATIVE DIAGNOSIS: Same as above OPERATION: Complete subareolar duct excision of the right breast SURGEON: JOVANNY LICEA ANESTHESIA: GA TISSUE REMOVED OR ALTERED: Subareolar duct excision on the right COMPLICATIONS: None apparent ESTIMATED BLOOD LOSS: Minimal PROCEDURE: Drains/implants: 1/4 inch [place] drain. Procedure in detail: After informed consent was obtained, the patient was brought to the operating room and laid in the supine position. The area of the right breast was prepped and draped in a normal sterile fashion. A curvilinear incision was created at the inferior border of the areola on the right. Dissection was carried down using sharp dissection. The subareolar ductal structures were inflamed, indurated, with a moderate amount of purulent material present. All of the indurated tissue was excised sharply. The fistula tract opening at the 3 o'clock position on the right areola was excised with a 15 blade scalpel. This opening was used to introduce a Leroy drain into the deep tissues. A [place] drain was then carried out through the lateralmost portion of the infra areolar incision. The subcutaneous tissues were then loosely approximated using 3-0 Vicryl suture. The overlying skin was also loosely approximated using 3-0 nylon suture. A dressing was placed, and the procedure was concluded. All sponge, instrument, and needle counts were correct 2. Condition: Stable.
[2018-07-05] MEDS ORDERED: OXYCODONE-ACETAMINOPHEN 5-325 MG TABLET ONE (14:08)
[2018-07-05] MEDS ORDERED: OXYCODONE HCL IR 5 MG TABLET PO PRN (14:09)
[2018-07-05 18:09] VITALS: BP 123/80
== END 2018-07-05 15:15 | disposition home or self-care (01) ==
LOC: OROUT 08:58
PROVIDERS: ATTEND Surgery
DX: N61.1 Abscess of the breast and nipple (principal); N60.41 Mammary duct ectasia of right breast; N64.1 Fat necrosis of breast; N60.31 Fibrosclerosis of right breast; I12.9 Hypertensive chronic kidney disease with stage 1 through stage 4 chronic kidney disease, or unspecified chronic kidney disease; N18.2 Chronic kidney disease, stage 2 (mild); E66.9 Obesity, unspecified; D64.9 Anemia, unspecified; D68.61 Antiphospholipid syndrome; I73.9 Peripheral vascular disease, unspecified; F17.210 Nicotine dependence, cigarettes, uncomplicated; R52 Pain, unspecified; Z87.891 Personal history of nicotine dependence; Z87.11 Personal history of peptic ulcer disease; Z86.718 Personal history of other venous thrombosis and embolism; Z87.898 Personal history of other specified conditions; Z88.5 Allergy status to narcotic agent; Z88.8 Allergy status to other drugs, medicaments and biological substances; Z88.6 Allergy status to analgesic agent; Z91.040 Latex allergy status; Z79.899 Other long term (current) drug therapy; Z79.01 Long term (current) use of anticoagulants; Z68.30 Body mass index [BMI] 30.0-30.9, adult
CPT/HCPCS: 93005; 36415 ×2; 82962; 85027; 81025; 80048; 88307 ×2; 93010; 19112; J2250; J3490; J1100; J3010; J1885; J0330; J2405; J2704; J0690; 400

== ENCOUNTER → 2018-10-12 | Outpatient (CLI) | payer MEDICAID ==
[2018-10-12 10:07] LABS: ABSOLUTE BASOPHILS # (AUTO) 0.1 10^3/uL (0.0-0.2); ABSOLUTE EOSINOPHILS # (AUTO) 0.6 10^3/uL (0.0-0.6); ABSOLUTE LYMPHOCYTES (AUTO) 2.2 10^3/uL (0.5-4.7); ABSOLUTE MONOCYTES (AUTO) 0.5 10^3/uL (0.1-1.4); BASOPHILS % (AUTO) 1.2 % (0-2); EOSINOPHILS % (AUTO) 6.9 % (0-6); HEMATOCRIT 40.1 % (36.0-47.0); HEMOGLOBIN 14.1 g/dL (12.0-15.5); LYMPHOCYTES % (AUTO) 26.5 % (13-45); MEAN CORPUSCULAR HEMOGLOBIN 32.3 pg (27.0-33.4); MEAN CORPUSCULAR HGB CONC 35.2 g/dL (32.0-36.0); MEAN CORPUSCULAR VOLUME 92 fl (80-97); MONOCYTES % (AUTO) 6.2 % (3-13); PLATELET COUNT 455 10^3/uL (150-450); RED BLOOD COUNT 4.37 10^6/uL (3.72-5.28); RED CELL DISTRIBUTION WIDTH 13.9 % (11.5-14.0); SEGMENTED NEUTROPHILS % (AUTO) 59.2 % (42-78); TOTAL CELLS COUNTED % (AUTO) 100 %; WHITE BLOOD COUNT 8.4 10^3/uL (4.0-10.5)
[2018-10-12 10:39] LABS: ALANINE AMINOTRANSFERASE 12 U/L (9-52); ALBUMIN 3.8 g/dL (3.5-5.0); ALKALINE PHOSPHATASE 69 U/L (38-126); ANION GAP 13 (5-19); ASPARTATE AMINO TRANSFERASE 20 U/L (14-36); BILIRUBIN,DIRECT 0.2 mg/dL (0.0-0.4); BILIRUBIN,TOTAL 0.5 mg/dL (0.2-1.3); BLOOD UREA NITROGEN 11 mg/dL (7-20); CALCIUM 9.6 mg/dL (8.4-10.2); CARBON DIOXIDE 24 mmol/L (22-30); CHLORIDE 104 mmol/L (98-107); GLUCOSE 101 mg/dL (75-110)
[2018-10-12 10:48] LABS: ERYTHROCYTE SEDIMENTATION RATE 35 mm/hr (0-20)
== END ==
LOC: OD 09:12
PROVIDERS: ATTEND Nurse Practitioner
DX: T81.31XA Disruption of external operation (surgical) wound, not elsewhere classified, initial encounter (principal)
CPT/HCPCS: 36415; 80053; 85025; 85652; 86140